=== PATIENT | male | born 1945 | race Hispanic/Latino ===

== ENCOUNTER 2023-08-02 19:15 | Inpatient (IN) | payer OTHER ==
[~2023-08-02] VITALS: Ht 170.2 cm; Wt 48.1 kg
[2023-08-02] MEDS: 0.9% NACL 500ML IV.SOLN 500 ML IV ONE (19:54)
[2023-08-02 20:29] LABS: BASOPHILS # (AUTO) 0.06 K/uL (0.00-0.20); BASOPHILS % (AUTO) 0.5 % (0.0-5.0); EOSINOPHILS # (AUTO) 0.05 K/uL (0.00-0.70); EOSINOPHILS % (AUTO) 0.4 % (0.0-8.0); IMMATURE GRANULOCYTE ABSOLUTE 0.34 K/uL (0-1); LYMPHOCYTES # (AUTO) 1.1 K/uL (1.0-4.8); LYMPHOCYTES % (AUTO) 8.6 % (21.0-51.0); MEAN CORPUSCULAR HEMOGLOBIN 29.7 pg (27.0-33.0); MEAN CORPUSCULAR HGB CONC 32.8 g/dL (32.0-36.0); MEAN CORPUSCULAR VOLUME 90.6 fL (79-99); MONOCYTES # (AUTO) 0.9 K/uL (0.1-1.0); MONOCYTES % (AUTO) 6.9 % (3.0-13.0); NEUTROPHILS # (AUTO) 9.9 K/uL (1.8-7.7); NEUTROPHILS % (AUTO) 80.8 % (40.0-77.0); PLATELET COUNT (AUTO) 134 K/uL (130-400); RED BLOOD CELL COUNT(AUTO) 5.08 MIL/uL (4.50-6.20); WHITE BLOOD COUNT (AUTO) 12.3 K/uL (4.8-10.8)
[2023-08-02 20:32] LABS: SARS-CoV-2, RNA, NAAT NEGATIVE SARS CoV-2 (NEGATIVE)
[2023-08-02 20:39] LABS: INFLUENZA TYPE A Negative For Type A (NEGATIVE); INFLUENZA TYPE B Negative For Type B (NEGATIVE)
[2023-08-02 21:10] LABS: ABG BASE EXCESS -8.3 mmol/L (-2.0-3.0); ABG HCO3 14.1 mmol/L (21.0-28.0); ABG OXYGEN SATURATION 95.7 % (95.0-99.0); ABG PCO2 22 mmHg (35-48); ABG PH 7.417 (7.35-7.450); CARBON MONOXIDE 0; HHb 4.3; PO2, ARTERIAL BG 80.2 mmHg (83.0-108.0); VENT MODE, BG ROOMAIR (ROOM AIR)
[2023-08-02 21:15] LABS: POTASSIUM 4.3 mmol/L (3.5-5.1)
[2023-08-02 21:25] LABS: APPEARANCE,URINE CLEAR (CLEAR); BILIRUBIN,URINE NEGATIVE (NEGATIVE); COLOR,URINE YELLOW (YELLOW); GLUCOSE, URINE (UA) NEGATIVE (NEGATIVE); KETONES,URINE 5 mg/dL (NEGATIVE); LEUKOCYTE ESTERASE ,URINE NEGATIVE Leu/uL (NEGATIVE); NITRATE,URINE NEGATIVE (NEGATIVE); OCCULT BLOOD,URINE SMALL (NEGATIVE); PH,URINE 5.5 (5.0-8.0); PROTEIN,URINE 70 mg/dL (NEGATIVE)
[2023-08-02 21:26] LABS: ADD UA MICROSCOPIC YES
[2023-08-02 21:28] LABS: BACTERIA,URINE RARE /HPF (None Seen); MUCUS,URINE RARE LPF (None Seen); SQUAMOUS EPITHELIAL CELL,UR RARE /HPF (0-2)
[2023-08-02 21:37] LABS: ALBUMIN 2.1 g/dL (3.5-5.0); BILIRUBIN,TOTAL 1.9 mg/dL (0.2-1.0); TOTAL PROTEIN, SERUM 6.2 g/dL (6.0-8.3)
[2023-08-03 01:14] LABS: B-TYPE NATRIURETIC PEPTIDE 25 pg/mL (0-100)
[2023-08-03 01:49] LABS: ERYTHROCYTE SEDIMENTATION RATE 67 MM/HR (0-20)
[2023-08-03] MEDS ORDERED: FAMOTIDINE 20MG VIAL IV PRN (07:30)
[2023-08-03] MEDS ORDERED: DEXTROSE 50%-WATER 50 ML DISP.SYRIN IV PRN (07:30)
[2023-08-03] MEDS ORDERED: LACTULOSE 20 GM/30 ML UDCUP PO PRN (07:30)
[2023-08-03] MEDS ORDERED: KCL 20 MEQ ERTAB PO PRN (07:30)
[2023-08-03] MEDS ORDERED: POTASSIUM CHLORIDE 20MEQ/100ML 100 ML IV PRN (07:30)
[2023-08-03] MEDS ORDERED: ONDANSETRON 4MG INJ IV PRN (07:30)
[2023-08-03] MEDS ORDERED: DIPHENHYDRAMINE HCL 25 MG CAPSULE PO PRN (07:30)
[2023-08-03] MEDS ORDERED: GUAIFENESIN-DM 200/20 MG 10 ML PO PRN (07:30)
[2023-08-03] MEDS ORDERED: MAGNESIUM 2GM PREMIX 50ML 50 ML IV PRN (07:30)
[2023-08-03] MEDS ORDERED: NITROGLYCERIN 0.4 MG SL TAB SL PRN (07:30)
[2023-08-03] MEDS ORDERED: GLUCAGON 1MG KIT 1 MG ML IM PRN (07:30)
[2023-08-03] MEDS ORDERED: HYDROCODONE/ACETAMINOPHEN 5/325 MG TAB PO PRN ×2 (07:30)
[2023-08-03] MEDS ORDERED: MAG/ALUM/SIMETH 30 ML UDCUP PO PRN (07:30)
[2023-08-03] MEDS ORDERED: HYDROMORPHONE 1 MG INJ IV PRN (07:30)
[2023-08-03] MEDS ORDERED: DiphenhydrAMINE HCL 50 MG/ML VIAL IV PRN (07:30)
[2023-08-03] MEDS ORDERED: ACETAMINOPHEN 325 MG TAB PO PRN ×2 (07:30)
[2023-08-03 07:55] LABS: INR 1.11 (0.85-1.15)
[2023-08-03 07:56] LABS: PARTIAL THROMBOPLASTIN TIME 37.9 SEC (26.3-35.5)
[2023-08-03 08:32] LABS: % IRON SATURATION 14.8 % (30-44)
[2023-08-03] MEDS: CLOPIDOGREL 75MG TAB PO SCH (09:00)
[2023-08-03] MEDS: ASPIRIN 81 MG EC TAB PO SCH (09:00)
[2023-08-03] MEDS ORDERED: COMPOUND IV MISC 1 EACH IVSOLN MISC PRN (09:00)
[2023-08-03 09:11] LABS: HIV 1&2 ANTIBODY Non-Reactive (Negative); HIV-1 p24 Antigen Non-Reactive (Negative)
[2023-08-03] MEDS: AZITHROMYCIN 500MG+NS 250ML 250 ML IVPB SCH (09:17)
[2023-08-03] MEDS: 0.9%NACL 1000ML 1,000 ML IV SCH (09:17)
[2023-08-03] MEDS: ENOXAPARIN SODIUM 30 MG/0.3 ML SQ SCH (09:18)
[2023-08-03] MEDS: IRON SUCROSE COMPLEX 300 MG in 0.9% NACL 250ML 250 ML IV SCH (09:31)
[2023-08-03] MEDS ORDERED: LEVODOPA PO (13:58)
[2023-08-03] MEDS ORDERED: [UNRECOGNIZED DRUG - OTHER] (13:58)
[2023-08-03] MEDS ORDERED: CARBIDOPA PO (13:58)
[2023-08-03] MEDS: ZOSYN 3.375GM+NS 50ML 50 ML IV SCH (14:46)
[2023-08-03 15:08] LABS: RAPID PLASMA REAGIN NONREACTIVE (NONREACTIVE)
[2023-08-03 15:30] VITALS: BP 158/62; PULSE 85; RESP 18
[2023-08-03 17:30] VITALS: BP 158/62; PULSE 85; RESP 18
[2023-08-03 18:42] VITALS: O2SAT 98
[2023-08-03 20:00] VITALS: BP 146/90; PULSE 86; RESP 18
[2023-08-03 20:52] VITALS: O2SAT 98
[2023-08-03] MEDS: FAMOTIDINE 20MG TAB PO SCH (21:00)
[2023-08-03] MEDS: ATORVASTATIN 40 MG TABLET PO SCH (21:00)
[2023-08-04] VITALS (10 sets, daily range): BP systolic 113–151; BP diastolic 57–94; PULSE 73–87; RESP 16–18; O2SAT 97–99
[2023-08-04 05:23] LABS: BASOPHILS # (AUTO) 0.09 K/uL (0.00-0.20); BASOPHILS % (AUTO) 0.8 % (0.0-5.0); EOSINOPHILS # (AUTO) 0.15 K/uL (0.00-0.70); EOSINOPHILS % (AUTO) 1.3 % (0.0-8.0); HEMATOCRIT 43.1 % (42-54); IMMATURE GRANULOCYTE ABSOLUTE 0.59 K/uL (0-1); LYMPHOCYTES # (AUTO) 1.2 K/uL (1.0-4.8); LYMPHOCYTES % (AUTO) 9.8 % (21.0-51.0); MEAN CORPUSCULAR HEMOGLOBIN 29.9 pg (27.0-33.0); MEAN CORPUSCULAR HGB CONC 31.8 g/dL (32.0-36.0); MEAN CORPUSCULAR VOLUME 94.1 fL (79-99); MONOCYTES # (AUTO) 0.7 K/uL (0.1-1.0); MONOCYTES % (AUTO) 6.2 % (3.0-13.0); NEUTROPHILS # (AUTO) 9.1 K/uL (1.8-7.7); NEUTROPHILS % (AUTO) 76.9 % (40.0-77.0); PLATELET COUNT (AUTO) 158 K/uL (130-400); RED BLOOD CELL COUNT(AUTO) 4.58 MIL/uL (4.50-6.20); RED CELL DISTRIBUTION WIDTH 15.8 % (11.0-15.5); WHITE BLOOD COUNT (AUTO) 11.9 K/uL (4.8-10.8)
[2023-08-04 05:43] LABS: CREATININE 1.7 mg/dL (0.5-1.3); POTASSIUM 4.6 mmol/L (3.5-5.1)
[2023-08-04] MEDS: DEXTROSE 5 %-0.45 % NACL 1,000 ML IV SCH (10:35)
[2023-08-04] MEDS: SODIUM CHLORIDE 3% FOR INHALATION 4 ML/AMP VIAL.NEB IH ONE (11:32)
[2023-08-04] MEDS: SODIUM CHLORIDE 7% INHALATION 4 ML VIAL.NEB IH ONE (18:53)
[2023-08-05] VITALS (7 sets, daily range): BP systolic 115–144; BP diastolic 76–84; PULSE 59–71; RESP 16–21; O2SAT 97
[2023-08-05 03:59] LABS: BASOPHILS # (AUTO) 0.08 K/uL (0.00-0.20); BASOPHILS % (AUTO) 0.9 % (0.0-5.0); EOSINOPHILS # (AUTO) 0.23 K/uL (0.00-0.70); EOSINOPHILS % (AUTO) 2.5 % (0.0-8.0); HEMATOCRIT 37.3 % (42-54); IMMATURE GRANULOCYTE ABSOLUTE 0.62 K/uL (0-1); LYMPHOCYTES # (AUTO) 0.8 K/uL (1.0-4.8); LYMPHOCYTES % (AUTO) 8.6 % (21.0-51.0); MEAN CORPUSCULAR HGB CONC 32.4 g/dL (32.0-36.0); MEAN CORPUSCULAR VOLUME 89.4 fL (79-99); MONOCYTES # (AUTO) 0.7 K/uL (0.1-1.0); MONOCYTES % (AUTO) 7.8 % (3.0-13.0); NEUTROPHILS # (AUTO) 6.8 K/uL (1.8-7.7); NEUTROPHILS % (AUTO) 73.5 % (40.0-77.0); PLATELET COUNT (AUTO) 152 K/uL (130-400); RED BLOOD CELL COUNT(AUTO) 4.17 MIL/uL (4.50-6.20); RED CELL DISTRIBUTION WIDTH 15.6 % (11.0-15.5); WHITE BLOOD COUNT (AUTO) 9.3 K/uL (4.8-10.8)
[2023-08-05 04:06] LABS: CREATININE 1.6 mg/dL (0.5-1.3); POTASSIUM 3.7 mmol/L (3.5-5.1)
[2023-08-05] MEDS: SODIUM CHLORIDE 3% FOR INHALATION 4 ML/AMP VIAL.NEB IH ONE (07:18)
[2023-08-05] MEDS ORDERED: ONDANSETRON 4MG INJ ONE (08:12)
[2023-08-05 16:08] LABS: RHEUMATOID ARTHRITIS FACTOR 26.3 IU/mL (<14.0)
[2023-08-05] MEDS: POTASSIUM CHLORIDE 10% ELIXIR 20 MEQ/15 ML UDCUP PO PRN (20:51)
[2023-08-06 00:26] VITALS: BP 134/69; PULSE 76; RESP 19
[2023-08-06] MEDS ORDERED: DEXTROSE 50%-WATER 50 ML DISP.SYRIN IV PRN (02:00)
[2023-08-06] MEDS ORDERED: GLUCAGON 1MG KIT 1 MG ML IM PRN (02:00)
[2023-08-06 04:26] VITALS: BP 148/82; PULSE 82; RESP 20
[2023-08-06 04:32] LABS: BASOPHILS # (AUTO) 0.09 K/uL (0.00-0.20); BASOPHILS % (AUTO) 0.9 % (0.0-5.0); HEMATOCRIT 42.7 % (42-54); IMMATURE GRANULOCYTE ABSOLUTE 0.78 K/uL (0-1); LYMPHOCYTES # (AUTO) 0.9 K/uL (1.0-4.8); LYMPHOCYTES % (AUTO) 9.2 % (21.0-51.0); MEAN CORPUSCULAR HEMOGLOBIN 29.6 pg (27.0-33.0); MEAN CORPUSCULAR HGB CONC 32.6 g/dL (32.0-36.0); MONOCYTES # (AUTO) 0.7 K/uL (0.1-1.0); MONOCYTES % (AUTO) 7.2 % (3.0-13.0); NEUTROPHILS # (AUTO) 7.5 K/uL (1.8-7.7); NUCLEATED RED BLOOD CELLS 0.2 % (0.0-0.19); PLATELET COUNT (AUTO) 148 K/uL (130-400); RED BLOOD CELL COUNT(AUTO) 4.69 MIL/uL (4.50-6.20); RED CELL DISTRIBUTION WIDTH 15.2 % (11.0-15.5); WHITE BLOOD COUNT (AUTO) 10.2 K/uL (4.8-10.8)
[2023-08-06 04:45] LABS: INR 1.11 (0.85-1.15)
[2023-08-06 04:46] LABS: PARTIAL THROMBOPLASTIN TIME 42.6 SEC (26.3-35.5)
[2023-08-06 04:49] LABS: CREATININE 1.4 mg/dL (0.5-1.3); POTASSIUM 4.2 mmol/L (3.5-5.1)
[2023-08-06 08:00] VITALS: O2SAT 95
[2023-08-06 08:03] VITALS: BP 116/77; PULSE 89; RESP 20
[2023-08-06 12:02] VITALS: BP 123/72; PULSE 97; RESP 20
[2023-08-06 18:09] LABS: ALBUMIN (IFE & ELECTROPHOR) 2.2 g/dL (2.9-4.4); ALBUMIN/GLOBULIN RATIO (IFE) 0.8 (0.7-1.7); ALPHA-1 (IFE & PEP) 0.5 g/dL (0.0-0.4); ALPHA-2 (IFE & PEP) 1.1 g/dL (0.4-1.0); BETA (IFE & ELP) 0.8 g/dL (0.7-1.3); GAMMA GLOBULINS (IFE & ELP) 0.6 g/dL (0.4-1.8); GLOBULIN TOTAL (IFE) 3.1 g/dL (2.2-3.9); IGA (IFE) 234 mg/dL (61-437); IGG (IMMUNOFIXATION) 572 mg/dL (603-1613); IGM (IMMUNOFIXATION) 48 mg/dL (15-143); M-SPIKE (IEP) Not Observed g/dL (Not Observed); TOTAL PROTEIN 5.3 g/dL (6.0-8.5)
[2023-08-07 15:14] LABS: ATYPICAL P-ANCA AB <1:20 titer (Neg:<1:20); CYTOPLASMIC (C-ANCA) AB, IGG <1:20 titer (Neg:<1:20)
[2023-08-07 21:08] LABS: QUANTIFERON MITOGEN VALUE >10.00 IU/mL (.); QUANTIFERON NIL VALUE 0.02 IU/mL (.)
[2023-08-08 06:14] LABS: KAPPA/LAMBDA RATIO,URINE 2.52 (1.83-14.26)
[2023-08-08 13:14] LABS: QUANTIFERON MITOGEN VALUE >10.00 IU/mL (.)
== END 2023-08-06 16:20 | disposition left against medical advice (07) | DRG 177 ==
LOC: EDH 19:15 → EDHIP 08-03 07:04 → 2AH 08-03 17:00 → 4AH 08-05 16:06
PROVIDERS: ADMIT Internal Medicine; ATTEND Internal Medicine
DX: J69.0 Pneumonitis due to inhalation of food and vomit (principal); A19 Miliary tuberculosis; C79.51 Secondary malignant neoplasm of bone; E44.0 Moderate protein-calorie malnutrition; E87.0 Hyperosmolality and hypernatremia; E87.1 Hypo-osmolality and hyponatremia; I31.39 Other pericardial effusion (noninflammatory); N18.4 Chronic kidney disease, stage 4 (severe); N30.00 Acute cystitis without hematuria; Z68.1 Body mass index [BMI] 19.9 or less, adult; R29.810 Facial weakness; N40.0 Benign prostatic hyperplasia without lower urinary tract symptoms; N32.3 Diverticulum of bladder; C61 Malignant neoplasm of prostate; D50.9 Iron deficiency anemia, unspecified; G20.A1 Parkinson's disease without dyskinesia, without mention of fluctuations; I12.9 Hypertensive chronic kidney disease with stage 1 through stage 4 chronic kidney disease, or unspecified chronic kidney disease; I80.3 Phlebitis and thrombophlebitis of lower extremities, unspecified; K59.00 Constipation, unspecified; N13.9 Obstructive and reflux uropathy, unspecified; E86.0 Dehydration; Z80.42 Family history of malignant neoplasm of prostate; Z82.49 Family history of ischemic heart disease and other diseases of the circulatory system; Z83.3 Family history of diabetes mellitus; Z86.711 Personal history of pulmonary embolism; Z86.73 Personal history of transient ischemic attack (TIA), and cerebral infarction without residual deficits; Z87.891 Personal history of nicotine dependence; Z90.79 Acquired absence of other genital organ(s); Z74.01 Bed confinement status
CPT/HCPCS: 36415; 36600; 70450; 70551; 71045; 71250; 72141; 72146; 72148; 74018; 74176; 80048; 80053; 81001; 82435; 82550; 82803; 82947; 82948; 83036; 83540; 83550; 83605; 83615; 83735; 83880; 83883; 84132; 84153; 84295; 84443; 84484; 85018; 85025; 85610; 85651; 85730; 86038; 86215; 86235; 86255; 86334; 86431; 86480; 86592; 86701; 87040; 87390; 87449; 87635; 87641; 87804; 92522; 92610; 93005; 93306; 93356; 93970; 94640; G0378; J0456; J1650; J1756; J2405; J2543; J7050